=== PATIENT | female | born 1990 | race Caucasian/White ===

== ENCOUNTER 2019-02-20 07:37 | Inpatient (IN) ==
[2019-02-20] MEDS ORDERED: OXYTOCIN 30 UNITS/500 ML BAG IV PRN ×2 (09:16→12:47)
[2019-02-20 09:39] LABS: Hematocrit (blood only) 38.4 % (37-47); Hemoglobin 12.9 g/dL (12.0-16.0); Mean Corpuscular Hemoglobin 30.5 pg (25-34); Mean Corpuscular Volume 90.8 fL (80-100); Mean Platelet Volume 8.7 fL (7.4-10.4); Platelet Count 233 K/uL (130-400); RDW Coefficient of Variation 14.5 % (11.5-14.5); RDW Standard Deviation 47.8 fL (36.4-46.3); Red Blood Count 4.23 M/uL (4.2-5.4); White Blood Count 8.97 K/uL (4.8-10.8)
[2019-02-20 09:42] LABS: Mean Corpuscular Hgb Conc 33.6 g/dL (32-36)
--- NOTE | 2019-02-20 10:10 | Obstetrical Progress Note ---
Date of Service February 20, 2019 Subjective Bird bulb inserted into cervix with 30cc saline pt tolerated procedure well FHR; CAT1 Ctx 4-5mins will do low dose pit with bird pt agrees to plan Results & Data Vital Signs (Past 12 Hours) Vital Signs Temp Pulse Resp BP 02/20/19 07:58 37.1 C 86 20 111/64 02/20/19 07:50 37.1 C 20
--- NOTE | 2019-02-20 10:24 | History and Physical Report ---
DATE OF ADMISSION: 02/20/2019 HISTORY OF PRESENT ILLNESS: The patient is a 29-year-old G2, P1, due date is 02/24/2019 making her 39 weeks and 3 days today, who is here on Labor and Delivery for induction of labor. The patient is a previous section. She was sectioned for preeclampsia. This was 15 months ago. In this , the patient's blood pressure has been under control. She does not have preeclampsia in this . She was started on 81 mg of baby aspirin. She saw Maternal Medicine and during the evaluation, fetus was found to have left renal dilation of pelvis and calyces. Maternal Medicine recommendation is to have the patient induced and delivered by 39 weeks. The patient had been seen in the office and has seen midwives and our providers and had agreed to undergo a trial of labor under section. Here today in Labor and Delivery, I have discussed once again the risks of vaginal after to the patient including risks of uterine rupture, risks to the fetus and mother. Of significant concern is the fact that the patient's last delivery was less than 18 months. I have told the patient that the risks of uterine rupture is increased if the delivery is less than 18 months. She is also not in active labor which means we might have to augment her labor with Pitocin. These 2 things do increase her risk. I discussed all these risks with her. The nurse and I stepped out of the room and the patient had a discussion with her and have agreed to proceed with a trial of labor after despite the risk. We therefore will proceed with the trial of labor. PAST MEDICAL HISTORY: 1. History of preeclampsia. 2. History of allergic rhinitis. PAST SURGICAL HISTORY: section and tonsillectomy. SOCIAL HISTORY: The patient denies tobacco, drug or alcohol use. The patient is and lives with spouse. ALLERGIES: No known drug allergies. PHYSICAL EXAMINATION: GENERAL: Well-developed, well-nourished white female, in no acute distress. HEART: S1, S2, regular rhythm and rate. LUNGS: Clear to auscultation bilaterally. ABDOMEN: Nontender, nondistended. Bedside ultrasound shows cephalic presentation. EXTREMITIES: No cyanosis, clubbing or edema. PELVIC: Shows she is about 2 cm dilated, soft anterior and about 50% effaced. ASSESSMENT AND PLAN: A 29-year-old G2, P1 at 39 weeks and 2 days, 1 prior section, wishes to try vaginal delivery after . Risks have been discussed with the patient. Specific attention have been paid to the fact that: 1. Her last delivery was less than 18 months ago. 2. Because she is not dulce, she may need Pitocin augmentation. The patient has agreed to proceed with the trial of labor. The patient has been induced at 39 weeks per recommendation of Maternal Medicine. Fetus has left urinary tract dilation and recommendation is to induce patient of 39 weeks. Risks of was also discussed with the patient. This was to help her make the decision between section and labor induction. We will therefore proceed with induction of labor. RAZIA
[2019-02-20] MEDS ORDERED: OXYTOCIN 30 UNITS/500 ML BAG IV SCH (11:30)
[2019-02-20] MEDS: LACTATED RINGER'S 1,000 ML IV PRN ×3 (12:47→23:16)
--- NOTE | 2019-02-20 13:05 | Obstetrical Progress Note ---
Date of Service February 20, 2019 Subjective Pt doing well Folet bulb fell out FHR; CAT1 Ctx 4-min VE; 2/50/-3 EFW 8lbs Unable to AROM Will start Pitocin Results & Data Vital Signs (Past 12 Hours) Vital Signs Temp Pulse Resp BP 02/20/19 11:38 36.9 C 83 20 112/63 02/20/19 07:58 37.1 C 86 20 111/64 02/20/19 07:50 37.1 C 20
[2019-02-20] MEDS ORDERED: fentaNYL citrate 100 MCG/2 ML VIAL ONE (16:50)
[2019-02-20] MEDS ORDERED: BUPIVACAINE 0.25% 30 ML VIAL ONE (16:50)
[2019-02-20] MEDS ORDERED: ePHEDrine sulfate 50 MG/ML AMP ONE (16:50)
[2019-02-20] MEDS ORDERED: fentaNYL 2MCG/ML ROPIV 1.25MG/ML 100 ML BAG EPI ONE (16:51)
--- NOTE | 2019-02-20 17:38 | Anesthesiology Consultation ---
Date of Service February 20, 2019 Assessment & Plan Chart Review Chart Review: Patient NOT seen in Pre Admission Testing and Acceptable Risk for Labor Epidural Consults Requested none ASA ASA2 Proposed Anesthesia Anesthesia Type: Labor Epidural Risk / Benefits Reviewed With: PT / POA / Parent / Guardian, Accepts Plan and Informed Consent Obtained History Height/Weight Height: 5 ft 4 in Weight: 100.698 kg Allergies Allergy/AdvReac Type Severity Reaction Status Date / Time No Known Allergies Allergy Unverified 02/28/18 10:30 Medications Home Medications Medication Instructions Recorded Confirmed Last Taken PNV cmb#95-ferrous fumarate-FA 1 tab PO DAILY 02/28/18 02/20/19 02/19/19 07:30 [] cetirizine [Zyrtec] 10 mg PO DAILY 02/28/18 02/20/19 02/19/19 07:30 aspirin [Aspirin Childrens] 81 mg PO DAILY 02/20/19 02/20/19 02/19/19 06:30 docusate sodium [Colace] 100 mg PO TID 02/20/19 02/20/19 02/19/19 18:00 Active Medications Generic Name Dose Route Start Last Admin Trade Name Freq PRN Reason Stop Dose Admin Lactated Ringer's 1,000 mls @ 125 mls/hr 02/20/19 09:16 02/20/19 17:17 Lr IV 02/22/19 09:15 999 mls/hr .Q8H PRN Administration L&D Protocol Protocol Oxytocin 30 units in 500 mls @ 6 mls/hr 02/20/19 12:47 02/20/19 14:52 Pitocin IV 02/22/19 12:46 0.36 units/hr .Q24H PRN 6 mls/hr Labor Induction/Augmentation Titration Protocol 0.36 UNITS/HR NPO Date Last Intake of Fluids: 02/20/19 Time Last Intake of Fluids: 15:00 Date Last Intake of Solids: 02/20/19 Time Last Intake of Solids: 07:00 Past Medical History Medical History delivery delivered delivery delivered Pre-eclampsia, severe Exercise / Class Metabolic Activity II 4-5 Yardwork/Stairs/Walk up hill Past Surgical History Surgical History History of myringotomy History of tonsillectomy History of tooth extraction Past Anesthesia History No Hx of Anesthesia Complications and No Family Hx of Anesthesia Complications History of PONV No Hx of PONV and No Hx of Motion Sickness Social History Smoking Status: Never smoker Do You Dip or Chew Tobacco: No Hx Alcohol Use: No Hx Substance Use: No Physical Exam Vital Signs Last Vital Signs Temp 36.9 C 02/20/19 11:38 Pulse 88 02/20/19 17:37 Resp 20 02/20/19 11:38 BP 109/56 L 02/20/19 17:37 Pulse Ox 99 02/20/19 17:37 ENMT Mouth: no dentition abnormality Thyromental Distance: > or= 3.5 Finger Breadths Mallampati Class: II Neck normal visual inspection Respiratory normal respiratory effort Auscultation: lungs clear to auscultation bilaterally Cardiovascular Rate/Rhythm: regular rate and regular rhythm Psychiatric Orientation: alert Testing Laboratory Results 02/20/19 09:26
[2019-02-20] MEDS ORDERED: ePHEDrine sulfate 50 MG/ML AMP IV PRN (17:40)
[2019-02-20] MEDS ORDERED: NALOXONE HCL 1 MG in SODIUM CHLORIDE 0.9% 1000ML 1,000 ML IV PRN (17:40)
[2019-02-20] MEDS ORDERED: NALOXONE HCL 0.4 MG/1 ML VIAL/CARP IV PRN (17:40)
[2019-02-20] MEDS ORDERED: ONDANSETRON INJ 2 MG/ML 2 ML VIAL IV PRN (17:40)
[2019-02-20] MEDS ORDERED: NALBUPHINE HCL INJ 10 MG/ML AMP IV PRN (17:40)
[2019-02-20] MEDS ORDERED: DiphenhydrAMINE HCL 50 MG/ML VIAL IV PRN (17:40)
--- NOTE | 2019-02-20 18:45 | Obstetrical Progress Note ---
Date of Service February 20, 2019 Subjective pt dong well Pt has epidural analgesia FHR; CAT1 ctx 3-4mins VE; 3-4/50.-2 AROM- clear Pit 6Mu Results & Data Vital Signs (Past 12 Hours) Vital Signs Temp Pulse Resp BP Pulse Ox 02/20/19 18:42 84 97 02/20/19 18:37 80 97 02/20/19 18:32 87 97 02/20/19 18:29 80 114/62 02/20/19 18:27 79 97 02/20/19 18:22 86 97 02/20/19 18:17 91 H 97 02/20/19 18:15 76 115/58 L 02/20/19 18:12 85 97 02/20/19 18:07 90 97 02/20/19 18:02 89 97 02/20/19 17:59 75 111/57 L 02/20/19 17:57 81 97 02/20/19 17:52 88 98 02/20/19 17:47 85 98 02/20/19 17:43 82 109/55 L 02/20/19 17:42 87 96 02/20/19 17:37 88 109/56 L 99 02/20/19 17:35 86 107/58 L 02/20/19 17:33 87 110/57 L 02/20/19 17:32 85 98 02/20/19 17:31 86 110/56 L 02/20/19 17:29 83 110/58 L 02/20/19 17:27 77 116/61 98 02/20/19 17:25 83 125/67 02/20/19 17:22 94 H 99 02/20/19 17:18 78 123/69 02/20/19 17:17 85 99 02/20/19 15:31 82 110/65 02/20/19 14:18 78 116/63 02/20/19 13:09 82 112/69 02/20/19 11:38 36.9 C 83 20 112/63 02/20/19 07:58 37.1 C 86 20 111/64 02/20/19 07:50 37.1 C 20
[2019-02-20] MEDS ORDERED: ACETAMINOPHEN 500 MG TAB PO ONE (21:00)
[2019-02-21] MEDS: fentaNYL 2MCG/ML ROPIV 1.25MG/ML 100 ML BAG EPI PRN ×2 (02:35→09:09)
[2019-02-21] MEDS ORDERED: ACETAMINOPHEN 500 MG TAB PO ONE (05:52)
[2019-02-21] MEDS ORDERED: ACETAMINOPHEN 500 MG TAB ONE (05:55)
--- NOTE | 2019-02-21 06:24 | Obstetrical Progress Note ---
Date of Service February 21, 2019 Subjective Pt doing well FHR; CAT1 Ctx/ 3-5mins VE; 5-6/75/-2 Pit 6Mu Results & Data Vital Signs (Past 12 Hours) Vital Signs Temp Pulse Resp BP Pulse Ox 02/21/19 06:22 94 H 96 02/21/19 06:17 87 97 02/21/19 06:14 86 110/63 02/21/19 06:12 80 95 02/21/19 06:07 82 95 02/21/19 06:03 79 94 02/21/19 06:02 81 95 02/21/19 05:59 86 110/62 02/21/19 05:57 90 97 02/21/19 05:52 83 96 02/21/19 05:47 82 95 02/21/19 05:44 81 106/56 L 02/21/19 05:42 81 95 02/21/19 05:40 80 94 02/21/19 05:37 80 96 02/21/19 05:34 82 94 02/21/19 05:32 82 95 02/21/19 05:30 77 107/58 L 02/21/19 05:29 81 94 02/21/19 05:27 81 95 02/21/19 05:22 81 95 02/21/19 05:21 82 94 02/21/19 05:17 81 95 02/21/19 05:15 79 108/60 02/21/19 05:12 86 96 02/21/19 05:07 95 H 97 02/21/19 05:05 36.8 C 18 02/21/19 05:02 91 H 94 02/21/19 04:59 82 108/59 L 02/21/19 04:57 82 96 02/21/19 04:52 84 96 02/21/19 04:48 80 94 02/21/19 04:47 78 94 02/21/19 04:44 80 108/64 02/21/19 04:43 80 94 02/21/19 04:42 83 95 02/21/19 04:37 83 95 02/21/19 04:34 81 94 02/21/19 04:32 80 95 02/21/19 04:30 78 109/62 02/21/19 04:27 84 94 02/21/19 04:25 79 94 02/21/19 04:22 82 95 02/21/19 04:18 81 94 02/21/19 04:17 78 95 02/21/19 04:14 83 115/61 02/21/19 04:13 78 94 02/21/19 04:12 83 95 02/21/19 04:07 79 94 02/21/19 04:02 80 95 02/21/19 04:01 81 94 02/21/19 03:59 82 107/57 L 02/21/19 03:57 81 94 02/21/19 03:54 79 94 02/21/19 03:52 82 96 02/21/19 03:47 76 95 02/21/19 03:44 84 106/59 L 02/21/19 03:43 91 H 94 02/21/19 03:42 78 95 02/21/19 03:37 79 96 02/21/19 03:32 80 96 02/21/19 03:30 82 107/55 L 02/21/19 03:27 86 98 02/21/19 03:22 77 96 02/21/19 03:17 77 95 02/21/19 03:14 81 110/55 L 02/21/19 03:12 77 96 02/21/19 03:07 77 96 02/21/19 03:02 76 96 02/21/19 02:59 82 99/50 L 02/21/19 02:57 76 96 02/21/19 02:52 81 95 02/21/19 02:47 80 96 02/21/19 02:45 37.0 C 77 97/53 L 02/21/19 02:42 82 96 02/21/19 02:37 81 96 02/21/19 02:32 76 95 02/21/19 02:30 79 98/53 L 02/21/19 02:27 75 96 02/21/19 02:22 75 96 02/21/19 02:17 76 96 02/21/19 02:14 75 98/54 L 02/21/19 02:12 75 96 02/21/19 02:07 75 96 02/21/19 02:02 76 95 02/21/19 01:59 75 96/55 L 02/21/19 01:57 74 96 02/21/19 01:52 88 96 02/21/19 01:47 75 96 02/21/19 01:44 74 93/54 L 02/21/19 01:42 75 96 02/21/19 01:37 72 96 02/21/19 01:32 72 96 02/21/19 01:29 73 93/55 L 02/21/19 01:27 73 96 02/21/19 01:22 74 97 02/21/19 01:17 76 96 02/21/19 01:15 76 99/53 L 02/21/19 01:12 76 96 02/21/19 01:11 36.9 C 18 02/21/19 01:07 74 97 02/21/19 01:02 80 97 02/21/19 00:59 75 110/64 02/21/19 00:57 74 97 02/21/19 00:52 75 96 02/21/19 00:47 73 96 02/21/19 00:45 77 101/60 02/21/19 00:42 76 96 02/21/19 00:37 76 96 02/21/19 00:32 77 96 02/21/19 00:30 74 107/60 02/21/19 00:27 74 96 02/21/19 00:22 76 96 02/21/19 00:19 73 94 02/21/19 00:17 75 96 02/21/19 00:15 76 110/59 L 02/21/19 00:12 77 96 02/21/19 00:07 75 96 02/21/19 00:02 72 96 02/21/19 00:00 72 107/62 02/20/19 23:57 76 96 02/20/19 23:52 75 95 02/20/19 23:47 79 95 02/20/19 23:44 74 109/57 L 02/20/19 23:42 78 96 02/20/19 23:37 78 96 02/20/19 23:32 75 96 02/20/19 23:29 75 109/57 L 02/20/19 23:27 76 96 02/20/19 23:22 79 96 02/20/19 23:17 72 96 02/20/19 23:14 72 106/58 L 02/20/19 23:12 74 96 02/20/19 23:09 36.7 C 18 02/20/19 23:07 77 97 02/20/19 23:05 83 94 01/06/20 23:02 75 95 02/20/19 22:59 75 119/61 02/20/19 22:57 83 94 02/20/19 22:52 74 96 02/20/19 22:50 80 94 02/20/19 22:47 77 96 02/20/19 22:44 77 117/62 94 02/20/19 22:42 75 95 02/20/19 22:37 75 96 02/20/19 22:32 73 96 02/20/19 22:29 75 112/61 02/20/19 22:27 77 96 02/20/19 22:22 75 96 02/20/19 22:19 83 93 02/20/19 22:17 76 96 02/20/19 22:14 77 117/59 L 02/20/19 22:12 75 96 02/20/19 22:07 78 96 02/20/19 22:02 77 95 02/20/19 21:59 78 109/57 L 02/20/19 21:57 77 96 02/20/19 21:52 80 96 02/20/19 21:47 83 97 02/20/19 21:45 80 116/62 02/20/19 21:42 79 98 02/20/19 21:37 78 97 02/20/19 21:32 79 97 02/20/19 21:29 80 113/57 L 02/20/19 21:27 84 98 02/20/19 21:22 80 97 02/20/19 21:17 80 97 02/20/19 21:14 83 118/59 L 02/20/19 21:12 82 97 02/20/19 21:10 37.1 C 18 02/20/19 21:07 95 H 98 02/20/19 21:02 85 97 02/20/19 20:59 81 112/57 L 02/20/19 20:57 83 96 02/20/19 20:52 84 97 02/20/19 20:47 80 97 02/20/19 20:44 80 104/60 02/20/19 20:42 90 97 02/20/19 20:37 83 97 02/20/19 20:32 82 97 02/20/19 20:29 86 112/65 02/20/19 20:27 84 97 02/20/19 20:22 83 96 02/20/19 20:17 82 96 02/20/19 20:14 78 113/62 02/20/19 20:12 80 95 02/20/19 20:07 84 96 02/20/19 20:02 86 97 02/20/19 19:59 81 109/60 02/20/19 19:57 85 95 02/20/19 19:52 88 96 02/20/19 19:47 86 96 02/20/19 19:44 84 106/59 L 02/20/19 19:42 85 95 02/20/19 19:37 79 97 02/20/19 19:36 80 94 02/20/19 19:32 89 96 02/20/19 19:30 81 108/62 02/20/19 19:27 85 97 02/20/19 19:22 83 97 02/20/19 19:17 85 97 02/20/19 19:14 89 106/62 02/20/19 19:12 90 98 02/20/19 19:07 80 97 02/20/19 19:02 85 97 02/20/19 19:00 37.0 C 18 02/20/19 18:59 88 105/61 02/20/19 18:57 81 96 02/20/19 18:52 79 97 02/20/19 18:47 94 H 98 02/20/19 18:45 86 109/65 02/20/19 18:42 84 97 02/20/19 18:37 80 97 02/20/19 18:32 87 97 02/20/19 18:29 80 114/62 02/20/19 18:27 79 97
[2019-02-21] MEDS ORDERED: SODIUM CHLORIDE 0.65% NA SOLN 45 ML (OCEAN) ONE (07:04)
[2019-02-21] MEDS: LACTATED RINGER'S 1,000 ML IV PRN (07:10)
--- NOTE | 2019-02-21 09:43 | Obstetrical Progress Note ---
Date of Service February 21, 2019 Subjective Patient is seen and examined Reviewed her records She is known to me from before IOL since yesterday s/p Santos bulb and low dose Pitocin with AROM Received epidural for pain, comfortable, no pain no pressure No BLACKMAN/ Change in vision/N&V VSS Afebrile FHR categ I [place] ctxs q 3-5 min, Pitocin at 8 mi/min VE; 5-6cm/ 60%/ -3, coned head, no change since this morning Discussed continue with PRETTY vs repeat Caseation She likes try more for VAC Plan to go up with Pitocin until 10 mi/min and reevaluate Continue to monitor closely Results & Data Vital Signs (Past 12 Hours) Vital Signs Temp Pulse Resp BP Pulse Ox 02/21/19 09:37 79 96 02/21/19 09:32 80 97 02/21/19 09:29 81 114/64 02/21/19 09:27 83 97 02/21/19 09:22 87 96 02/21/19 09:17 81 95 02/21/19 09:14 84 108/56 L 02/21/19 09:12 82 96 02/21/19 09:07 80 96 02/21/19 09:02 85 96 02/21/19 08:59 76 103/55 L 02/21/19 08:58 37.1 C 20 02/21/19 08:57 82 97 02/21/19 08:52 79 96 02/21/19 08:47 82 96 02/21/19 08:44 85 111/56 L 02/21/19 08:42 83 95 02/21/19 08:37 84 95 02/21/19 08:32 79 96 02/21/19 08:31 85 94 02/21/19 08:29 83 107/58 L 02/21/19 08:27 75 94 02/21/19 08:23 81 94 02/21/19 08:22 78 94 02/21/19 08:18 80 94 02/21/19 08:17 80 95 02/21/19 08:14 82 107/57 L 02/21/19 08:12 86 94 02/21/19 08:07 81 96 02/21/19 08:06 77 94 02/21/19 08:02 76 95 02/21/19 07:59 74 112/59 L 01/07/20 07:57 78 96 02/21/19 07:52 76 95 02/21/19 07:47 79 96 02/21/19 07:44 77 111/58 L 02/21/19 07:42 78 96 02/21/19 07:37 79 95 02/21/19 07:32 78 96 02/21/19 07:30 76 108/59 L 02/21/19 07:27 80 95 02/21/19 07:22 81 96 02/21/19 07:17 79 95 02/21/19 07:14 79 101/58 L 02/21/19 07:12 78 96 02/21/19 07:07 83 95 02/21/19 07:04 89 94 02/21/19 07:02 86 96 02/21/19 06:59 37.3 C 81 20 112/57 L 02/21/19 06:57 82 95 02/21/19 06:52 87 97 02/21/19 06:47 85 96 02/21/19 06:44 85 116/67 02/21/19 06:42 79 96 02/21/19 06:37 86 96 02/21/19 06:32 83 96 02/21/19 06:29 85 114/66 02/21/19 06:27 83 96 02/21/19 06:22 94 H 96 02/21/19 06:17 87 97 02/21/19 06:14 86 110/63 02/21/19 06:12 80 95 02/21/19 06:07 82 95 02/21/19 06:03 79 94 02/21/19 06:02 81 95 02/21/19 05:59 86 110/62 02/21/19 05:57 90 97 02/21/19 05:52 83 96 02/21/19 05:47 82 95 02/21/19 05:44 81 106/56 L 02/21/19 05:42 81 95 02/21/19 05:40 80 94 02/21/19 05:37 80 96 02/21/19 05:34 82 94 02/21/19 05:32 82 95 02/21/19 05:30 77 107/58 L 02/21/19 05:29 81 94 02/21/19 05:27 81 95 02/21/19 05:22 81 95 02/21/19 05:21 82 94 02/21/19 05:17 81 95 02/21/19 05:15 79 108/60 02/21/19 05:12 86 96 02/21/19 05:07 95 H 97 02/21/19 05:05 36.8 C 18 02/21/19 05:02 91 H 94 02/21/19 04:59 82 108/59 L 02/21/19 04:57 82 96 02/21/19 04:52 84 96 02/21/19 04:48 80 94 02/21/19 04:47 78 94 02/21/19 04:44 80 108/64 02/21/19 04:43 80 94 02/21/19 04:42 83 95 02/21/19 04:37 83 95 02/21/19 04:34 81 94 02/21/19 04:32 80 95 02/21/19 04:30 78 109/62 02/21/19 04:27 84 94 02/21/19 04:25 79 94 02/21/19 04:22 82 95 02/21/19 04:18 81 94 02/21/19 04:17 78 95 02/21/19 04:14 83 115/61 02/21/19 04:13 78 94 02/21/19 04:12 83 95 02/21/19 04:07 79 94 02/21/19 04:02 80 95 02/21/19 04:01 81 94 02/21/19 03:59 82 107/57 L 02/21/19 03:57 81 94 02/21/19 03:54 79 94 02/21/19 03:52 82 96 02/21/19 03:47 76 95 02/21/19 03:44 84 106/59 L 02/21/19 03:43 91 H 94 02/21/19 03:42 78 95 02/21/19 03:37 79 96 02/21/19 03:32 80 96 02/21/19 03:30 82 107/55 L 02/21/19 03:27 86 98 02/21/19 03:22 77 96 02/21/19 03:17 77 95 02/21/19 03:14 81 110/55 L 02/21/19 03:12 77 96 02/21/19 03:07 77 96 02/21/19 03:02 76 96 02/21/19 02:59 82 99/50 L 02/21/19 02:57 76 96 02/21/19 02:52 81 95 02/21/19 02:47 80 96 02/21/19 02:45 37.0 C 77 97/53 L 02/21/19 02:42 82 96 02/21/19 02:37 81 96 02/21/19 02:32 76 95 02/21/19 02:30 79 98/53 L 02/21/19 02:27 75 96 02/21/19 02:22 75 96 02/21/19 02:17 76 96 02/21/19 02:14 75 98/54 L 02/21/19 02:12 75 96 02/21/19 02:07 75 96 02/21/19 02:02 76 95 02/21/19 01:59 75 96/55 L 02/21/19 01:57 74 96 02/21/19 01:52 88 96 02/21/19 01:47 75 96 02/21/19 01:44 74 93/54 L 02/21/19 01:42 75 96 02/21/19 01:37 72 96 02/21/19 01:32 72 96 02/21/19 01:29 73 93/55 L 02/21/19 01:27 73 96 02/21/19 01:22 74 97 02/21/19 01:17 76 96 02/21/19 01:15 76 99/53 L 02/21/19 01:12 76 96 02/21/19 01:11 36.9 C 18 02/21/19 01:07 74 97 02/21/19 01:02 80 97 02/21/19 00:59 75 110/64 02/21/19 00:57 74 97 02/21/19 00:52 75 96 02/21/19 00:47 73 96 02/21/19 00:45 77 101/60 02/21/19 00:42 76 96 02/21/19 00:37 76 96 02/21/19 00:32 77 96 02/21/19 00:30 74 107/60 02/21/19 00:27 74 96 02/21/19 00:22 76 96 02/21/19 00:19 73 94 02/21/19 00:17 75 96 02/21/19 00:15 76 110/59 L 02/21/19 00:12 77 96 02/21/19 00:07 75 96 02/21/19 00:02 72 96 02/21/19 00:00 72 107/62 02/20/19 23:57 76 96 02/20/19 23:52 75 95 02/20/19 23:47 79 95 02/20/19 23:44 74 109/57 L 02/20/19 23:42 78 96 02/20/19 23:37 78 96 02/20/19 23:32 75 96 02/20/19 23:29 75 109/57 L 02/20/19 23:27 76 96 02/20/19 23:22 79 96 02/20/19 23:17 72 96 02/20/19 23:14 72 106/58 L 02/20/19 23:12 74 96 02/20/19 23:09 36.7 C 18 02/20/19 23:07 77 97 02/20/19 23:05 83 94 02/20/19 23:02 75 95 02/20/19 22:59 75 119/61 02/20/19 22:57 83 94 02/20/19 22:52 74 96 02/20/19 22:50 80 94 02/20/19 22:47 77 96 02/20/19 22:44 77 117/62 94 02/20/19 22:42 75 95 02/20/19 22:37 75 96 02/20/19 22:32 73 96 02/20/19 22:29 75 112/61 02/20/19 22:27 77 96 02/20/19 22:22 75 96 02/20/19 22:19 83 93 02/20/19 22:17 76 96 02/20/19 22:14 77 117/59 L 02/20/19 22:12 75 96 02/20/19 22:07 78 96 02/20/19 22:02 77 95 02/20/19 21:59 78 109/57 L 02/20/19 21:57 77 96 02/20/19 21:52 80 96 02/20/19 21:47 83 97 02/20/19 21:45 80 116/62 02/20/19 21:42 79 98
[2019-02-21] MEDS ORDERED: ACETAMINOPHEN 325 MG TAB PO PRN (11:20)
[2019-02-21] MEDS ORDERED: ACETAMINOPHEN 325 MG TAB ONE (11:24)
--- NOTE | 2019-02-21 11:46 | Obstetrical Progress Note ---
Date of Service February 21, 2019 Subjective Patient is reevaluated She has BLACKMAN, just took Tylenol FHR had been having variable decelerations with almost each ctxs, good variability in between VSS Afebrile VE; 5-6 cm/ 70%/ -2, coned head, clear fluid leaking AP: 29 yo , IOL since yesterday, TOLAC, s/p Santos, Pitocin, AROM ed 18 hours ago Short interval, h/o C section 15 months ago No cervical change house attendant 5 hours Categ II strip Remote from delivery Recommended repeat C section Understands it is a major surgery and risks were discussed She understands and likes to think about it with her and decide Results & Data Vital Signs (Past 12 Hours) Vital Signs Temp Pulse Resp BP Pulse Ox 02/21/19 11:37 89 97 02/21/19 11:32 94 H 96 02/21/19 11:29 89 116/58 L 02/21/19 11:27 90 95 02/21/19 11:22 91 H 97 02/21/19 11:17 94 H 96 02/21/19 11:14 93 H 113/63 02/21/19 11:12 88 96 02/21/19 11:09 36.6 C 20 02/21/19 11:07 85 97 02/21/19 11:02 93 H 96 02/21/19 10:59 77 114/60 02/21/19 10:57 91 H 98 02/21/19 10:52 83 97 02/21/19 10:47 85 95 02/21/19 10:44 90 118/66 02/21/19 10:42 88 97 02/21/19 10:37 92 H 95 02/21/19 10:32 82 96 02/21/19 10:30 83 114/62 02/21/19 10:29 85 94 02/21/19 10:27 82 95 02/21/19 10:22 86 96 02/21/19 10:17 80 96 02/21/19 10:14 81 106/53 L 02/21/19 10:12 80 96 02/21/19 10:07 82 96 02/21/19 10:02 80 96 02/21/19 10:00 82 117/57 L 02/21/19 09:57 93 H 96 02/21/19 09:52 77 96 01/07/20 09:47 86 97 02/21/19 09:45 82 108/63 02/21/19 09:42 84 96 02/21/19 09:37 79 96 02/21/19 09:32 80 97 02/21/19 09:29 81 114/64 02/21/19 09:27 83 97 02/21/19 09:22 87 96 02/21/19 09:17 81 95 02/21/19 09:14 84 108/56 L 02/21/19 09:12 82 96 02/21/19 09:07 80 96 02/21/19 09:02 85 96 02/21/19 08:59 76 103/55 L 02/21/19 08:58 37.1 C 20 02/21/19 08:57 82 97 02/21/19 08:52 79 96 02/21/19 08:47 82 96 02/21/19 08:44 85 111/56 L 02/21/19 08:42 83 95 02/21/19 08:37 84 95 02/21/19 08:32 79 96 02/21/19 08:31 85 94 02/21/19 08:29 83 107/58 L 02/21/19 08:27 75 94 02/21/19 08:23 81 94 02/21/19 08:22 78 94 02/21/19 08:18 80 94 02/21/19 08:17 80 95 02/21/19 08:14 82 107/57 L 02/21/19 08:12 86 94 02/21/19 08:07 81 96 02/21/19 08:06 77 94 02/21/19 08:02 76 95 02/21/19 07:59 74 112/59 L 02/21/19 07:57 78 96 02/21/19 07:52 76 95 02/21/19 07:47 79 96 02/21/19 07:44 77 111/58 L 02/21/19 07:42 78 96 02/21/19 07:37 79 95 02/21/19 07:32 78 96 02/21/19 07:30 76 108/59 L 02/21/19 07:27 80 95 02/21/19 07:22 81 96 02/21/19 07:17 79 95 02/21/19 07:14 79 101/58 L 02/21/19 07:12 78 96 02/21/19 07:07 83 95 02/21/19 07:04 89 94 02/21/19 07:02 86 96 02/21/19 06:59 37.3 C 81 20 112/57 L 02/21/19 06:57 82 95 02/21/19 06:52 87 97 02/21/19 06:47 85 96 02/21/19 06:44 85 116/67 02/21/19 06:42 79 96 02/21/19 06:37 86 96 02/21/19 06:32 83 96 02/21/19 06:29 85 114/66 02/21/19 06:27 83 96 02/21/19 06:22 94 H 96 02/21/19 06:17 87 97 02/21/19 06:14 86 110/63 02/21/19 06:12 80 95 02/21/19 06:07 82 95 02/21/19 06:03 79 94 02/21/19 06:02 81 95 02/21/19 05:59 86 110/62 02/21/19 05:57 90 97 02/21/19 05:52 83 96 02/21/19 05:47 82 95 02/21/19 05:44 81 106/56 L 02/21/19 05:42 81 95 02/21/19 05:40 80 94 02/21/19 05:37 80 96 02/21/19 05:34 82 94 02/21/19 05:32 82 95 02/21/19 05:30 77 107/58 L 02/21/19 05:29 81 94 02/21/19 05:27 81 95 02/21/19 05:22 81 95 02/21/19 05:21 82 94 02/21/19 05:17 81 95 02/21/19 05:15 79 108/60 02/21/19 05:12 86 96 02/21/19 05:07 95 H 97 02/21/19 05:05 36.8 C 18 02/21/19 05:02 91 H 94 02/21/19 04:59 82 108/59 L 02/21/19 04:57 82 96 02/21/19 04:52 84 96 02/21/19 04:48 80 94 02/21/19 04:47 78 94 02/21/19 04:44 80 108/64 02/21/19 04:43 80 94 02/21/19 04:42 83 95 02/21/19 04:37 83 95 02/21/19 04:34 81 94 02/21/19 04:32 80 95 02/21/19 04:30 78 109/62 02/21/19 04:27 84 94 02/21/19 04:25 79 94 02/21/19 04:22 82 95 02/21/19 04:18 81 94 02/21/19 04:17 78 95 02/21/19 04:14 83 115/61 02/21/19 04:13 78 94 02/21/19 04:12 83 95 02/21/19 04:07 79 94 02/21/19 04:02 80 95 02/21/19 04:01 81 94 02/21/19 03:59 82 107/57 L 02/21/19 03:57 81 94 02/21/19 03:54 79 94 02/21/19 03:52 82 96 02/21/19 03:47 76 95 02/21/19 03:44 84 106/59 L 02/21/19 03:43 91 H 94 02/21/19 03:42 78 95 02/21/19 03:37 79 96 02/21/19 03:32 80 96 02/21/19 03:30 82 107/55 L 02/21/19 03:27 86 98 02/21/19 03:22 77 96 02/21/19 03:17 77 95 02/21/19 03:14 81 110/55 L 02/21/19 03:12 77 96 02/21/19 03:07 77 96 02/21/19 03:02 76 96 02/21/19 02:59 82 99/50 L 02/21/19 02:57 76 96 02/21/19 02:52 81 95 02/21/19 02:47 80 96 02/21/19 02:45 37.0 C 77 97/53 L 02/21/19 02:42 82 96 02/21/19 02:37 81 96 02/21/19 02:32 76 95 02/21/19 02:30 79 98/53 L 02/21/19 02:27 75 96 02/21/19 02:22 75 96 02/21/19 02:17 76 96 02/21/19 02:14 75 98/54 L 02/21/19 02:12 75 96 02/21/19 02:07 75 96 02/21/19 02:02 76 95 02/21/19 01:59 75 96/55 L 02/21/19 01:57 74 96 02/21/19 01:52 88 96 02/21/19 01:47 75 96 02/21/19 01:44 74 93/54 L 02/21/19 01:42 75 96 02/21/19 01:37 72 96 02/21/19 01:32 72 96 02/21/19 01:29 73 93/55 L 02/21/19 01:27 73 96 02/21/19 01:22 74 97 02/21/19 01:17 76 96 02/21/19 01:15 76 99/53 L 02/21/19 01:12 76 96 02/21/19 01:11 36.9 C 18 02/21/19 01:07 74 97 02/21/19 01:02 80 97 02/21/19 00:59 75 110/64 02/21/19 00:57 74 97 02/21/19 00:52 75 96 02/21/19 00:47 73 96 02/21/19 00:45 77 101/60 02/21/19 00:42 76 96 02/21/19 00:37 76 96 02/21/19 00:32 77 96 02/21/19 00:30 74 107/60 02/21/19 00:27 74 96 02/21/19 00:22 76 96 02/21/19 00:19 73 94 02/21/19 00:17 75 96 02/21/19 00:15 76 110/59 L 02/21/19 00:12 77 96 02/21/19 00:07 75 96 02/21/19 00:02 72 96 02/21/19 00:00 72 107/62 02/20/19 23:57 76 96 02/20/19 23:52 75 95 02/20/19 23:47 79 95 02/20/19 23:44 74 109/57 L
[2019-02-21] MEDS ORDERED: CITRIC ACID/SODIUM CITRATE 15 ML UDC PO SCH (12:00)
[2019-02-21] MEDS ORDERED: LACTATED RINGER'S 1,000 ML IV SCH ×3 (12:00→15:15)
[2019-02-21] MEDS ORDERED: CEFAZOLIN 3000MG 65 ML IV SCH (12:00)
[2019-02-21 12:12] LABS: Basophils # (auto) 0.01 K/uL (0-0.2); Basophils % (auto) 0.1 %; Eosinophils # (auto) 0.02 K/uL (0-0.5); Eosinophils % (auto) 0.2 %; Hematocrit (blood only) 35.5 % (37-47); Hemoglobin 12.2 g/dL (12.0-16.0); Immature Granulocytes # (auto) 0.03 K/uL (0.00-0.02); Immature Granulocytes % (auto) 0.2 %; Lymphocytes # (auto) 1.06 K/uL (1.2-3.4); Lymphocytes % (auto) 8.1 %; Mean Corpuscular Hemoglobin 30.3 pg (25-34); Mean Corpuscular Volume 88.3 fL (80-100); Mean Platelet Volume 8.7 fL (7.4-10.4); Monocytes # (auto) 0.89 K/uL (0.11-0.59); Monocytes % (auto) 6.8 %; Neutrophils # (auto) 11.14 K/uL (1.4-6.5); Neutrophils % (auto) 84.6 %; Platelet Count 196 K/uL (130-400); RDW Coefficient of Variation 14.3 % (11.5-14.5); RDW Standard Deviation 46.5 fL (36.4-46.3); Red Blood Count 4.02 M/uL (4.2-5.4); White Blood Count 13.15 K/uL (4.8-10.8)
[2019-02-21 12:15] LABS: Mean Corpuscular Hgb Conc 34.4 g/dL (32-36)
[2019-02-21] MEDS ORDERED: AZITHROMYCIN 500 MG in DEXTROSE 5% 250 ML IV ONE (12:15)
--- NOTE | 2019-02-21 12:50 | Obstetrical Progress Note ---
Date of Service February 21, 2019 Subjective Patient and her had been thinking and decided to have Repeat Csecton Her went for lunch and she likes to await until he comes back FHR categ I, no more decels since pitocin was off, good variability and accels She signed the informed consent All questions were answered Results & Data Vital Signs (Past 12 Hours) Vital Signs Temp Pulse Resp BP Pulse Ox 02/21/19 12:47 89 96 02/21/19 12:44 92 H 114/56 L 02/21/19 12:42 84 95 02/21/19 12:37 87 96 02/21/19 12:32 83 96 02/21/19 12:30 85 111/56 L 02/21/19 12:27 88 97 02/21/19 12:22 91 H 97 02/21/19 12:17 86 98 02/21/19 12:14 86 118/66 02/21/19 12:12 91 H 98 02/21/19 12:07 88 98 02/21/19 12:02 88 97 02/21/19 11:59 89 115/64 02/21/19 11:57 90 97 02/21/19 11:52 88 96 02/21/19 11:47 86 97 02/21/19 11:44 82 114/62 02/21/19 11:42 88 97 02/21/19 11:37 89 97 02/21/19 11:32 94 H 96 02/21/19 11:29 89 116/58 L 02/21/19 11:27 90 95 02/21/19 11:22 91 H 97 02/21/19 11:17 94 H 96 02/21/19 11:14 93 H 113/63 02/21/19 11:12 88 96 02/21/19 11:09 36.6 C 20 02/21/19 11:07 85 97 02/21/19 11:02 93 H 96 02/21/19 10:59 77 114/60 02/21/19 10:57 91 H 98 02/21/19 10:52 83 97 02/21/19 10:47 85 95 02/21/19 10:44 90 118/66 02/21/19 10:42 88 97 02/21/19 10:37 92 H 95 02/21/19 10:32 82 96 02/21/19 10:30 83 114/62 02/21/19 10:29 85 94 02/21/19 10:27 82 95 02/21/19 10:22 86 96 02/21/19 10:17 80 96 02/21/19 10:14 81 106/53 L 02/21/19 10:12 80 96 02/21/19 10:07 82 96 02/21/19 10:02 80 96 02/21/19 10:00 82 117/57 L 02/21/19 09:57 93 H 96 02/21/19 09:52 77 96 02/21/19 09:47 86 97 02/21/19 09:45 82 108/63 02/21/19 09:42 84 96 02/21/19 09:37 79 96 02/21/19 09:32 80 97 02/21/19 09:29 81 114/64 02/21/19 09:27 83 97 02/21/19 09:22 87 96 02/21/19 09:17 81 95 02/21/19 09:14 84 108/56 L 02/21/19 09:12 82 96 02/21/19 09:07 80 96 02/21/19 09:02 85 96 02/21/19 08:59 76 103/55 L 02/21/19 08:58 37.1 C 20 02/21/19 08:57 82 97 02/21/19 08:52 79 96 02/21/19 08:47 82 96 02/21/19 08:44 85 111/56 L 02/21/19 08:42 83 95 02/21/19 08:37 84 95 02/21/19 08:32 79 96 02/21/19 08:31 85 94 02/21/19 08:29 83 107/58 L 02/21/19 08:27 75 94 02/21/19 08:23 81 94 02/21/19 08:22 78 94 02/21/19 08:18 80 94 02/21/19 08:17 80 95 02/21/19 08:14 82 107/57 L 02/21/19 08:12 86 94 02/21/19 08:07 81 96 02/21/19 08:06 77 94 02/21/19 08:02 76 95 02/21/19 07:59 74 112/59 L 02/21/19 07:57 78 96 02/21/19 07:52 76 95 02/21/19 07:47 79 96 02/21/19 07:44 77 111/58 L 02/21/19 07:42 78 96 02/21/19 07:37 79 95 02/21/19 07:32 78 96 02/21/19 07:30 76 108/59 L 02/21/19 07:27 80 95 02/21/19 07:22 81 96 02/21/19 07:17 79 95 02/21/19 07:14 79 101/58 L 02/21/19 07:12 78 96 02/21/19 07:07 83 95 02/21/19 07:04 89 94 02/21/19 07:02 86 96 02/21/19 06:59 37.3 C 81 20 112/57 L 02/21/19 06:57 82 95 02/21/19 06:52 87 97 02/21/19 06:47 85 96 02/21/19 06:44 85 116/67 02/21/19 06:42 79 96 02/21/19 06:37 86 96 02/21/19 06:32 83 96 02/21/19 06:29 85 114/66 02/21/19 06:27 83 96 02/21/19 06:22 94 H 96 02/21/19 06:17 87 97 02/21/19 06:14 86 110/63 02/21/19 06:12 80 95 02/21/19 06:07 82 95 02/21/19 06:03 79 94 02/21/19 06:02 81 95 02/21/19 05:59 86 110/62 02/21/19 05:57 90 97 02/21/19 05:52 83 96 02/21/19 05:47 82 95 02/21/19 05:44 81 106/56 L 02/21/19 05:42 81 95 02/21/19 05:40 80 94 02/21/19 05:37 80 96 02/21/19 05:34 82 94 02/21/19 05:32 82 95 02/21/19 05:30 77 107/58 L 02/21/19 05:29 81 94 02/21/19 05:27 81 95 02/21/19 05:22 81 95 02/21/19 05:21 82 94 02/21/19 05:17 81 95 02/21/19 05:15 79 108/60 02/21/19 05:12 86 96 02/21/19 05:07 95 H 97 02/21/19 05:05 36.8 C 18 02/21/19 05:02 91 H 94 02/21/19 04:59 82 108/59 L 02/21/19 04:57 82 96 02/21/19 04:52 84 96 02/21/19 04:48 80 94 02/21/19 04:47 78 94 02/21/19 04:44 80 108/64 02/21/19 04:43 80 94 02/21/19 04:42 83 95 02/21/19 04:37 83 95 02/21/19 04:34 81 94 02/21/19 04:32 80 95 02/21/19 04:30 78 109/62 02/21/19 04:27 84 94 02/21/19 04:25 79 94 02/21/19 04:22 82 95 02/21/19 04:18 81 94 02/21/19 04:17 78 95 02/21/19 04:14 83 115/61 02/21/19 04:13 78 94 02/21/19 04:12 83 95 02/21/19 04:07 79 94 02/21/19 04:02 80 95 02/21/19 04:01 81 94 02/21/19 03:59 82 107/57 L 02/21/19 03:57 81 94 02/21/19 03:54 79 94 02/21/19 03:52 82 96 02/21/19 03:47 76 95 02/21/19 03:44 84 106/59 L 02/21/19 03:43 91 H 94 02/21/19 03:42 78 95 02/21/19 03:37 79 96 02/21/19 03:32 80 96 02/21/19 03:30 82 107/55 L 02/21/19 03:27 86 98 02/21/19 03:22 77 96 02/21/19 03:17 77 95 02/21/19 03:14 81 110/55 L 02/21/19 03:12 77 96 02/21/19 03:07 77 96 02/21/19 03:02 76 96 02/21/19 02:59 82 99/50 L 02/21/19 02:57 76 96 02/21/19 02:52 81 95 02/21/19 02:47 80 96 02/21/19 02:45 37.0 C 77 97/53 L 02/21/19 02:42 82 96 02/21/19 02:37 81 96 02/21/19 02:32 76 95 02/21/19 02:30 79 98/53 L 02/21/19 02:27 75 96 02/21/19 02:22 75 96 02/21/19 02:17 76 96 02/21/19 02:14 75 98/54 L 02/21/19 02:12 75 96 02/21/19 02:07 75 96 02/21/19 02:02 76 95 02/21/19 01:59 75 96/55 L 02/21/19 01:57 74 96 02/21/19 01:52 88 96 02/21/19 01:47 75 96 02/21/19 01:44 74 93/54 L 02/21/19 01:42 75 96 02/21/19 01:37 72 96 02/21/19 01:32 72 96 02/21/19 01:29 73 93/55 L 02/21/19 01:27 73 96 02/21/19 01:22 74 97 02/21/19 01:17 76 96 02/21/19 01:15 76 99/53 L 02/21/19 01:12 76 96 02/21/19 01:11 36.9 C 18 02/21/19 01:07 74 97 02/21/19 01:02 80 97 02/21/19 00:59 75 110/64 02/21/19 00:57 74 97 02/21/19 00:52 75 96
--- NOTE | 2019-02-21 13:25 | Obstetrical Progress Note ---
Date of Service February 21, 2019 Subjective Her is back and she is ready Vagina was washed with Betadine, cervix is unchanged FHR category I plan to to OR Results & Data Vital Signs (Past 12 Hours) Vital Signs Temp Pulse Resp BP Pulse Ox 02/21/19 13:22 88 96 02/21/19 13:17 89 96 02/21/19 13:14 86 104/53 L 02/21/19 13:12 93 H 97 02/21/19 13:07 87 97 02/21/19 13:02 84 96 02/21/19 13:01 84 107/55 L 02/21/19 12:57 88 96 02/21/19 12:52 93 H 96 02/21/19 12:47 89 96 02/21/19 12:44 92 H 114/56 L 02/21/19 12:42 84 95 02/21/19 12:37 87 96 02/21/19 12:32 83 96 02/21/19 12:30 85 111/56 L 02/21/19 12:27 88 97 02/21/19 12:22 91 H 97 02/21/19 12:17 86 98 02/21/19 12:14 86 118/66 02/21/19 12:12 91 H 98 02/21/19 12:07 88 98 02/21/19 12:02 88 97 02/21/19 11:59 89 115/64 02/21/19 11:57 90 97 02/21/19 11:52 88 96 02/21/19 11:47 86 97 02/21/19 11:44 82 114/62 02/21/19 11:42 88 97 02/21/19 11:37 89 97 02/21/19 11:32 94 H 96 02/21/19 11:29 89 116/58 L 02/21/19 11:27 90 95 02/21/19 11:22 91 H 97 02/21/19 11:17 94 H 96 02/21/19 11:14 93 H 113/63 02/21/19 11:12 88 96 02/21/19 11:09 36.6 C 20 02/21/19 11:07 85 97 02/21/19 11:02 93 H 96 02/21/19 10:59 77 114/60 02/21/19 10:57 91 H 98 02/21/19 10:52 83 97 02/21/19 10:47 85 95 02/21/19 10:44 90 118/66 02/21/19 10:42 88 97 02/21/19 10:37 92 H 95 02/21/19 10:32 82 96 02/21/19 10:30 83 114/62 02/21/19 10:29 85 94 02/21/19 10:27 82 95 02/21/19 10:22 86 96 02/21/19 10:17 80 96 02/21/19 10:14 81 106/53 L 02/21/19 10:12 80 96 02/21/19 10:07 82 96 02/21/19 10:02 80 96 02/21/19 10:00 82 117/57 L 02/21/19 09:57 93 H 96 02/21/19 09:52 77 96 02/21/19 09:47 86 97 02/21/19 09:45 82 108/63 02/21/19 09:42 84 96 02/21/19 09:37 79 96 02/21/19 09:32 80 97 02/21/19 09:29 81 114/64 02/21/19 09:27 83 97 02/21/19 09:22 87 96 02/21/19 09:17 81 95 02/21/19 09:14 84 108/56 L 02/21/19 09:12 82 96 02/21/19 09:07 80 96 02/21/19 09:02 85 96 02/21/19 08:59 76 103/55 L 02/21/19 08:58 37.1 C 20 02/21/19 08:57 82 97 02/21/19 08:52 79 96 02/21/19 08:47 82 96 02/21/19 08:44 85 111/56 L 02/21/19 08:42 83 95 02/21/19 08:37 84 95 02/21/19 08:32 79 96 02/21/19 08:31 85 94 02/21/19 08:29 83 107/58 L 02/21/19 08:27 75 94 02/21/19 08:23 81 94 02/21/19 08:22 78 94 02/21/19 08:18 80 94 02/21/19 08:17 80 95 02/21/19 08:14 82 107/57 L 02/21/19 08:12 86 94 02/21/19 08:07 81 96 02/21/19 08:06 77 94 02/21/19 08:02 76 95 02/21/19 07:59 74 112/59 L 02/21/19 07:57 78 96 02/21/19 07:52 76 95 02/21/19 07:47 79 96 02/21/19 07:44 77 111/58 L 02/21/19 07:42 78 96 02/21/19 07:37 79 95 02/21/19 07:32 78 96 02/21/19 07:30 76 108/59 L 02/21/19 07:27 80 95 02/21/19 07:22 81 96 02/21/19 07:17 79 95 02/21/19 07:14 79 101/58 L 02/21/19 07:12 78 96 02/21/19 07:07 83 95 02/21/19 07:04 89 94 02/21/19 07:02 86 96 02/21/19 06:59 37.3 C 81 20 112/57 L 02/21/19 06:57 82 95 02/21/19 06:52 87 97 02/21/19 06:47 85 96 02/21/19 06:44 85 116/67 02/21/19 06:42 79 96 02/21/19 06:37 86 96 02/21/19 06:32 83 96 02/21/19 06:29 85 114/66 02/21/19 06:27 83 96 02/21/19 06:22 94 H 96 02/21/19 06:17 87 97 02/21/19 06:14 86 110/63 02/21/19 06:12 80 95 02/21/19 06:07 82 95 02/21/19 06:03 79 94 02/21/19 06:02 81 95 02/21/19 05:59 86 110/62 02/21/19 05:57 90 97 02/21/19 05:52 83 96 02/21/19 05:47 82 95 02/21/19 05:44 81 106/56 L 02/21/19 05:42 81 95 02/21/19 05:40 80 94 02/21/19 05:37 80 96 02/21/19 05:34 82 94 02/21/19 05:32 82 95 02/21/19 05:30 77 107/58 L 02/21/19 05:29 81 94 02/21/19 05:27 81 95 02/21/19 05:22 81 95 02/21/19 05:21 82 94 02/21/19 05:17 81 95 02/21/19 05:15 79 108/60 02/21/19 05:12 86 96 02/21/19 05:07 95 H 97 02/21/19 05:05 36.8 C 18 02/21/19 05:02 91 H 94 02/21/19 04:59 82 108/59 L 02/21/19 04:57 82 96 02/21/19 04:52 84 96 02/21/19 04:48 80 94 02/21/19 04:47 78 94 02/21/19 04:44 80 108/64 02/21/19 04:43 80 94 02/21/19 04:42 83 95 02/21/19 04:37 83 95 02/21/19 04:34 81 94 02/21/19 04:32 80 95 02/21/19 04:30 78 109/62 02/21/19 04:27 84 94 02/21/19 04:25 79 94 02/21/19 04:22 82 95 02/21/19 04:18 81 94 02/21/19 04:17 78 95 02/21/19 04:14 83 115/61 02/21/19 04:13 78 94 02/21/19 04:12 83 95 02/21/19 04:07 79 94 02/21/19 04:02 80 95 02/21/19 04:01 81 94 02/21/19 03:59 82 107/57 L 02/21/19 03:57 81 94 02/21/19 03:54 79 94 02/21/19 03:52 82 96 02/21/19 03:47 76 95 02/21/19 03:44 84 106/59 L 02/21/19 03:43 91 H 94 02/21/19 03:42 78 95 02/21/19 03:37 79 96 02/21/19 03:32 80 96 02/21/19 03:30 82 107/55 L 02/21/19 03:27 86 98 02/21/19 03:22 77 96 02/21/19 03:17 77 95 02/21/19 03:14 81 110/55 L 02/21/19 03:12 77 96 02/21/19 03:07 77 96 02/21/19 03:02 76 96 02/21/19 02:59 82 99/50 L 02/21/19 02:57 76 96 02/21/19 02:52 81 95 02/21/19 02:47 80 96 02/21/19 02:45 37.0 C 77 97/53 L 02/21/19 02:42 82 96 02/21/19 02:37 81 96 02/21/19 02:32 76 95 02/21/19 02:30 79 98/53 L 02/21/19 02:27 75 96 02/21/19 02:22 75 96 02/21/19 02:17 76 96 02/21/19 02:14 75 98/54 L 02/21/19 02:12 75 96 02/21/19 02:07 75 96 02/21/19 02:02 76 95 02/21/19 01:59 75 96/55 L 02/21/19 01:57 74 96 02/21/19 01:52 88 96 02/21/19 01:47 75 96 02/21/19 01:44 74 93/54 L 02/21/19 01:42 75 96 02/21/19 01:37 72 96 02/21/19 01:32 72 96 02/21/19 01:29 73 93/55 L 02/21/19 01:27 73 96
[2019-02-21] MEDS ORDERED: OXYTOCIN 10 UNITS/ML VIAL ONE (14:17)
[2019-02-21] MEDS ORDERED: ONDANSETRON INJ 2 MG/ML 2 ML VIAL ONE (14:17)
[2019-02-21] MEDS ORDERED: MoRPHine SULFATE PF 1 MG/ML 10 ML AMP/VIAL ONE (14:17)
[2019-02-21] MEDS ORDERED: LIDOCAINE/EPINEPHRINE 2% 1:200,000 20 ML SDV ONE (14:17)
[2019-02-21] MEDS ORDERED: PHENYLEPHRINE 100MCG/ML 5ML SYR ONE (14:22)
[2019-02-21] MEDS ORDERED: NALOXONE HCL 0.4 MG/1 ML VIAL/CARP IV PRN (14:25)
[2019-02-21] MEDS ORDERED: LACTATED RINGER'S 500 ML IV PRN (14:25)
[2019-02-21] MEDS ORDERED: NALOXONE HCL 0.08 MG in SYRINGE 1.8 ML IV PRN (14:25)
[2019-02-21] MEDS ORDERED: ONDANSETRON INJ 2 MG/ML 2 ML VIAL IV PRN (14:25)
[2019-02-21] MEDS ORDERED: NALOXONE HCL 1 MG in SODIUM CHLORIDE 0.9% 1000ML 1,000 ML IV PRN (14:25)
[2019-02-21] MEDS ORDERED: MoRPHine SULFATE PF 1 MG/ML 10 ML AMP/VIAL EPI ONE (14:25)
[2019-02-21] MEDS ORDERED: ePHEDrine sulfate 50 MG/ML AMP IV PRN (14:25)
[2019-02-21] MEDS ORDERED: MEPERIDINE HCL 25 MG/ML CARP IV PRN (14:25)
[2019-02-21] MEDS ORDERED: DC INTRASPINAL MORPHINE SCH (14:30)
[2019-02-21] MEDS ORDERED: NO NARCOTICS OR SEDATIVES SCH (14:30)
[2019-02-21] MEDS ORDERED: SODIUM CHLORIDE 0.9% 1000ML 1,000 ML IV SCH (14:30)
[2019-02-21] MEDS ORDERED: OXYTOCIN 10 UNITS/ML VIAL IM ONE (14:47)
[2019-02-21] MEDS ORDERED: MEASLES, MUMPS & RUBELLA VIRUS VIAL SQ ONE (15:04)
[2019-02-21] MEDS ORDERED: DIPHTHERIA/TETANUS/PERTUSSIS 0.5 ML SYR/VIAL IM ONE (15:04)
[2019-02-21] MEDS ORDERED: BENZOCAINE 20% AER SPR 82.5 GM CAN EXT PRN (15:04)
[2019-02-21] MEDS ORDERED: SENNA 8.6 MG TAB PO PRN (15:04)
[2019-02-21] MEDS ORDERED: MAGNESIUM HYDROXIDE SUSP 30 ML UDC PO PRN (15:04)
[2019-02-21] MEDS ORDERED: HYDROCORTISONE ACETATE 25 MG SUPP PR PRN (15:04)
[2019-02-21] MEDS ORDERED: SUPERCREAM 0.870% 15 GM JAR EXT PRN (15:04)
--- NOTE | 2019-02-21 15:10 | Post Operative Brief Note ---
Immediate Post Op Note v1 Date of Surgery February 21, 2019 Pre & Post Diagnosis Operation Date: 02/21/19 13:30 Pre-Op Diagnosis: ARREST OF DILATATION; PREVIOUS SECTION; FAILED TOLAC Post-Op Diagnosis: SAME PREOP I identified the patient and participated in the time-out.: Yes Procedure Operation Date: 02/21/19 13:30 Actual Procedures p Section in LD; Live Male at 1414(Bilateral) - Giovanna Lopez MD Surgeon Giovanna Jama MD Sales Lead Kelsy Hidalgo RN Estimated Blood Loss 600 Findings Consistent with Post-Op Diagnosis Drains Santos Catheter (200 ml) Anesthesia Type Labor Epidural Complications none Disposition Accompanied Patient To Recovery: Yes Disposition: L&D
--- NOTE | 2019-02-21 15:14 | Anesthesia Procedure Note ---
Date of Service February 21, 2019 Anesthesia Post Epidural Note Vital Signs Vital Signs: Temp Pulse Resp BP Pulse Ox 36.6 C 133 H 20 117/55 L 98 02/21/19 11:09 02/21/19 15:11 02/21/19 11:09 02/21/19 15:11 02/21/19 15:10 Pain Intensity Bilateral Abdomen: Pain Intensity: 0 Notes Mental Status: alert / awake / arousable and participated in evaluation Patient Amnestic to Procedure: No Nausea / Vomiting: adequately controlled Pain: adequately controlled Airway Patency, RR, SpO2: stable & adequate BP & HR: stable & adequate Hydration State: stable & adequate Neuraxial Anesthesia: was administered and sensory block is resolving Anesthetic Complications: no major complications apparent and Pt Satisfied with anesthetic care Epidural: Removed without complications and With tip intact
[2019-02-21] MEDS: KETOROLAC 30 MG/ML VIAL IV PRN ×2 (16:01→22:42)
[2019-02-21] MEDS: OXYTOCIN 20 UNITS in LACTATED RINGER'S 1,000 ML IV SCH (16:18)
[2019-02-21] MEDS: DiphenhydrAMINE HCL 50 MG/ML VIAL IV PRN ×2 (17:27→23:21)
[2019-02-21] MEDS: NALBUPHINE HCL INJ 10 MG/ML AMP IV PRN (18:34)
[2019-02-21] MEDS: MoRPHine SULFATE 2 MG/ML CARP IV PRN ×2 (20:04→22:42)
[2019-02-21] MEDS: SIMETHICONE 80 MG CHEW PO SCH (20:51)
[2019-02-21] MEDS: DOCUSATE SODIUM 100 MG CAP PO SCH (20:51)
[2019-02-21] MEDS ORDERED: CEFAZOLIN 3000MG/72.5 ML BAG IV ONE (22:00)
--- NOTE | 2019-02-22 00:20 | Operative Report ---
DATE OF OPERATION: 02/21/2019 PREOPERATIVE DIAGNOSES: The patient is a 29-year-old G2, P1-0-0-1 at 39 weeks and 4 days of gestation, with history of prior , who was admitted yesterday for induction of labor , TOLAC ( Trial of labor after ) Arrest of dilatation at active phase of labor Failed TOLAC Prolonged rupture of membranes Occiput posterior position Suspected macrosomia. POSTOPERATIVE DIAGNOSES: The patient is a 29-year-old G2, P1-0-0-1 at 39 weeks and 4 days of gestation, with history of prior , who was admitted yesterday for induction of labor , TOLAC ( Trial of labor after ) Arrest of dilatation at active phase of labor Failed TOLAC Prolonged rupture of membranes Occiput posterior position Macrosomia.. PROCEDURE: Repeat low transverse with Pfannenstiel skin incision. SURGEON: Giovanna Jama M.D. BACK ROLLER: Kelsy Butts RN ANESTHESIA: Epidural. ANESTHESIOLOGIST: Dr. Gaitan. ESTIMATED BLOOD LOSS: 600 mL. INTRAVENOUS FLUIDS: 1500 mL of lactated ringer. DRAINS: Santos catheter drained 200 mL of clear urine. COMPLICATIONS: None. FINDINGS: Baby was a viable male infant delivered at 14:14 p.m. in cephalic presentation, direct occiput posterior position. Apgars were 7/9, weight was 4480 grams. Maternal findings, normal uterus, fallopian tubes and ovaries. DESCRIPTION OF PROCEDURE: The patient was taken to the operating room where epidural anesthesia was given to be adequate. She was placed in dorsal supine position with a leftward tilt. She was prepared and draped in usual sterile fashion, Pfannenstiel skin incision was made from the old scar, carried through to the underlying layer of fascia with the Bovie. Fascia was incised in the midline and incision was extended laterally with the help of Castano scissors. Upper aspect of the fascial incision was then grasped with 2 Gabriela clamps, elevated, underlying rectus muscles were dissected off sharply with Castano scissors. Lower aspect of the fascial incision was then grasped with 2 Gabriela clamps, elevated, underlying rectus muscles were dissected off sharply with Castano scissors. Rectus muscles were in the midline and incision was extended superiorly and inferiorly with good visualization of the bladder. Bladder blade was inserted. Vesicouterine peritoneum was identified, grasped with pickups and entered sharply with the Metzenbaum scissors. Bladder flap was created digitally and the lower segment was thin and bulging and it was incised in a transverse fashion and incision was extended laterally with the help of bandage scissors. Membranes were ruptured. Clear fluid was obtained. Baby's face was facing up towards the incision and it was occiput posterior position. Baby's head was delivered without difficulty. Shoulders were delivered with minimal traction. Mouth and nose were suctioned. The baby was cleaned, dried and the cord was clamped x2 and cut at 1 minute delay and then baby was handed to waiting pediatric team and cord blood was obtained. Placenta was delivered manually as intact and complete. Uterus was exteriorized, cleared of all clots and debris. Incision was repaired with 0 Vicryl in a running locked fashion and a second imbricating layer was placed with another 0 Vicryl in a running locked fashion. Excellent hemostasis was achieved. Cul-de-sac was irrigated with warm normal saline and suctioned and the fallopian tubes and ovaries were visualized to be normal. Uterus was returned to the abdomen. The pelvis was irrigated with warm normal saline and suctioned. Uterine incision was checked to be hemostatic again. Parietal peritoneum was reapproximated with 3-0 Vicryl in a running fashion and the rectus muscles were reapproximated with the same suture, 3-0 Vicryl in a running fashion. Excellent hemostasis was achieved. Rectus fascia was reapproximated with 0 Vicryl in a running fashion. Subcuticular fat tissue was brought together with 3-0 Vicryl in a running fashion. Skin was closed with 4-0 Monocryl in a subcuticular fashion. No complications happened. The patient tolerated the procedure well. Sponge, lap, needle count was correct x3. I was present during whole procedure. The patient received 3 grams of cefazolin and 500 mg of azithromycin before and during surgery. She was taken to L&D in stable condition. I attest to the content of the Intraoperative Record and any orders documented therein. Any exceptions are noted below. MTDD
[2019-02-22] MEDS: OXYTOCIN 20 UNITS in LACTATED RINGER'S 1,000 ML IV SCH (00:49)
[2019-02-22] MEDS: MoRPHine SULFATE 2 MG/ML CARP IV PRN (03:42)
[2019-02-22] MEDS: NALBUPHINE HCL INJ 10 MG/ML AMP IV PRN (03:51)
[2019-02-22 05:58] LABS: Basophils # (auto) 0.01 K/uL (0-0.2); Basophils % (auto) 0.1 %; Eosinophils # (auto) 0.06 K/uL (0-0.5); Eosinophils % (auto) 0.5 %; Hematocrit (blood only) 29.9 % (37-47); Hemoglobin 10.2 g/dL (12.0-16.0); Immature Granulocytes # (auto) 0.04 K/uL (0.00-0.02); Immature Granulocytes % (auto) 0.3 %; Lymphocytes # (auto) 1.41 K/uL (1.2-3.4); Lymphocytes % (auto) 10.7 %; Mean Corpuscular Hemoglobin 30.8 pg (25-34); Mean Corpuscular Hgb Conc 34.1 g/dL (32-36); Mean Corpuscular Volume 90.3 fL (80-100); Mean Platelet Volume 8.7 fL (7.4-10.4); Monocytes # (auto) 1.01 K/uL (0.11-0.59); Monocytes % (auto) 7.6 %; Neutrophils # (auto) 10.69 K/uL (1.4-6.5); Neutrophils % (auto) 80.8 %; Platelet Count 175 K/uL (130-400); RDW Coefficient of Variation 14.3 % (11.5-14.5); RDW Standard Deviation 47.4 fL (36.4-46.3); Red Blood Count 3.31 M/uL (4.2-5.4); White Blood Count 13.22 K/uL (4.8-10.8)
[2019-02-22] MEDS: KETOROLAC 30 MG/ML VIAL IV PRN (06:44)
[2019-02-22] MEDS ORDERED: MEPERIDINE HCL 50 MG/ML CARP IV PRN (08:25)
[2019-02-22] MEDS ORDERED: DiphenhydrAMINE HCL 50 MG/ML VIAL IV PRN (08:25)
[2019-02-22] MEDS ORDERED: KETOROLAC 30 MG/ML VIAL IV PRN (08:25)
[2019-02-22] MEDS ORDERED: ONDANSETRON INJ 2 MG/ML 2 ML VIAL IV PRN (08:25)
[2019-02-22] MEDS ORDERED: PROMETHAZINE HCL 25 MG in SODIUM CHLORIDE 0.9% 50 ML IV PRN (08:25)
--- NOTE | 2019-02-22 08:43 | Communication Note ---
Date of Service: February 22, 2019 no c/o H/A. no neurologic sequelae.
[2019-02-22] MEDS: FERROUS SULFATE 325 MG TAB PO SCH (09:06)
[2019-02-22] MEDS: DOCUSATE SODIUM 100 MG CAP PO SCH ×2 (09:06→22:13)
[2019-02-22] MEDS: PRENATAL VITAMIN 1 TAB PO SCH (09:07)
[2019-02-22] MEDS: OXYCODONE/ACETAMINOPHEN 5mg/325mg TAB PO PRN ×4 (09:07→22:13)
[2019-02-22] MEDS: SIMETHICONE 80 MG CHEW PO SCH ×4 (09:07→22:13)
--- NOTE | 2019-02-22 11:56 | Surgery Progress Note ---
Date of Service February 22, 2019 Subjective POD#1 doing well passing gas Physical Exam Constitutional: WD/WN, vitals as above comfortable abdomen soft and non- tender fundus firm no edema neg Rylan's will advance diet/activity Results & Data Vital Signs (Past 12 Hours) Vital Signs Temp Pulse Resp BP Pulse Ox 02/22/19 08:30 16 97 02/22/19 07:30 16 96 02/22/19 07:10 36.9 C 81 16 103/69 95 02/22/19 06:30 16 96 02/22/19 05:00 16 94 02/22/19 04:00 36.6 C 81 16 109/62 95 02/22/19 03:30 18 95 02/22/19 02:30 18 96 02/22/19 01:30 16 95 02/22/19 00:30 16 94 Laboratory Results Laboratory Results - last 48 hr 02/20/19 02/21/19 02/22/19 09:26 11:59 05:43 WBC 13.15 H 13.22 H RBC 4.02 L 3.31 L Hgb 12.2 10.2 L Hct 35.5 L 29.9 L MCV 88.3 90.3 MCH 30.3 30.8 MCHC 34.4 34.1 RDW Std Deviation 46.5 H 47.4 H RDW Coeff of Vinicio 14.3 14.3 Plt Count 196 175 MPV 8.7 8.7 Immature Gran % (Auto) 0.2 0.3 Neut % (Auto) 84.6 80.8 Lymph % (Auto) 8.1 10.7 [place] % (Auto) 6.8 7.6 Eos % (Auto) 0.2 0.5 Baso % (Auto) 0.1 0.1 Immature Gran # (Auto) 0.03 H 0.04 H Neut # (Auto) 11.14 H 10.69 H Lymph # (Auto) 1.06 L 1.41 [place] # (Auto) 0.89 H 1.01 H Eos # (Auto) 0.02 0.06 Baso # (Auto) 0.01 0.01 Blood Type AB Positive Antibody Screen NEGATIVE
[2019-02-22] MEDS: IBUPROFEN 600 MG TAB PO PRN ×3 (13:11→22:13)
[2019-02-22] MEDS ORDERED: bisacodyL 5 MG TABEC PO SCH (20:00)
[2019-02-22] MEDS ORDERED: ONDANSETRON 4 MG TAB PO PRN (21:59)
[2019-02-23] MEDS: OXYCODONE/ACETAMINOPHEN 5mg/325mg TAB PO PRN ×5 (03:00→21:22)
[2019-02-23] MEDS: IBUPROFEN 600 MG TAB PO PRN ×5 (03:00→21:21)
[2019-02-23 06:21] LABS: Hematocrit (blood only) 30.1 % (37-47); Hemoglobin 10.1 g/dL (12.0-16.0)
[2019-02-23] MEDS: DOCUSATE SODIUM 100 MG CAP PO SCH ×2 (08:02→21:21)
[2019-02-23] MEDS: SIMETHICONE 80 MG CHEW PO SCH ×4 (08:02→21:21)
[2019-02-23] MEDS: PRENATAL VITAMIN 1 TAB PO SCH (08:02)
[2019-02-23] MEDS: FERROUS SULFATE 325 MG TAB PO SCH (08:02)
--- NOTE | 2019-02-23 09:36 | Obstetrical Progress Note ---
Date of Service February 23, 2019 Assessment & Plan (1) delivery delivered: c/sec day 3# pt doing well continue day2 care ] Subjective Ambulation: ambulating normally Voiding: no voiding problems Passing Gas:: Yes Diet Tolerance:: clear liquids Lochia:: Small Feeding Type:: breast feeding Review of Systems All systems reviewed & are unremarkable except as noted in HPI & below Physical Exam Constitutional WD/WN, vitals as above well developed and well nourished Eyes PERRL, conjunctivae normal, anicteric sclerae ENMT external ear and nose normal, oropharynx normal Neck trachea midline, no thyromegaly Respiratory normal respiratory effort, lungs clear to auscultation Cardiovascular RRR, no murmur, no edema Chest (Breasts) normal inspection/palpation of breasts Gastrointestinal (Abdomen) normal bowel sounds, soft, nontender, no hepatosplenomegaly Musculoskeletal no cyanosis or clubbing, extremities motor strength 5/5 Skin no rashes, warm and dry + incision (Clean,dry and intact) Neurologic patellar DTR's 2+ bilat, sensation intact Psychiatric A+Ox3, euthymic affect Genitourinary normal external appearance Lymphatic no cervical or axillary lymphadenopathy Results & Data Vital Signs (Past 12 Hours) Vital Signs Temp Pulse Resp BP Pulse Ox 02/22/19 23:20 36.5 C 79 18 116/72 96
[2019-02-23] MEDS ORDERED: bisacodyL 10 MG SUPP PR PRN (15:04)
[2019-02-24] MEDS: IBUPROFEN 600 MG TAB PO PRN ×3 (01:25→10:15)
[2019-02-24] MEDS: OXYCODONE/ACETAMINOPHEN 5mg/325mg TAB PO PRN ×3 (01:26→10:15)
[2019-02-24] MEDS: PRENATAL VITAMIN 1 TAB PO SCH (08:28)
[2019-02-24] MEDS: DOCUSATE SODIUM 100 MG CAP PO SCH (08:28)
[2019-02-24] MEDS: FERROUS SULFATE 325 MG TAB PO SCH (08:28)
[2019-02-24] MEDS: SIMETHICONE 80 MG CHEW PO SCH (08:29)
--- NOTE | 2019-02-24 10:26 | Surgery Progress Note ---
Date of Service February 24, 2019 Subjective doing well passing gas had BM tolerating diet Physical Exam Constitutional: WD/WN, vitals as above comfortable incision clean dry and intact no edema neg Rylan's for discharge home Results & Data Vital Signs (Past 12 Hours) Vital Signs Temp Pulse Resp BP Pulse Ox 02/24/19 00:25 36.4 C L 72 18 112/76 99 Laboratory Results Laboratory Results - last 72 hr 02/20/19 02/21/19 02/22/19 09:26 11:59 05:43 WBC 13.15 H 13.22 H RBC 4.02 L 3.31 L Hgb 12.2 10.2 L Hct 35.5 L 29.9 L MCV 88.3 90.3 MCH 30.3 30.8 MCHC 34.4 34.1 RDW Std Deviation 46.5 H 47.4 H RDW Coeff of Vinicio 14.3 14.3 Plt Count 196 175 MPV 8.7 8.7 Immature Gran % (Auto) 0.2 0.3 Neut % (Auto) 84.6 80.8 Lymph % (Auto) 8.1 10.7 [place] % (Auto) 6.8 7.6 Eos % (Auto) 0.2 0.5 Baso % (Auto) 0.1 0.1 Immature Gran # (Auto) 0.03 H 0.04 H Neut # (Auto) 11.14 H 10.69 H Lymph # (Auto) 1.06 L 1.41 Dunn # (Auto) 0.89 H 1.01 H Eos # (Auto) 0.02 0.06 Baso # (Auto) 0.01 0.01 Blood Type AB Positive Antibody Screen NEGATIVE 02/23/19 05:52 WBC RBC Hgb 10.1 L Hct 30.1 L MCV MCH MCHC RDW Std Deviation RDW Coeff of Vinicio Plt Count MPV Immature Gran % (Auto) Neut % (Auto) Lymph % (Auto) [place] % (Auto) Eos % (Auto) Baso % (Auto) Immature Gran # (Auto) Neut # (Auto) Lymph # (Auto) [place] # (Auto) Eos # (Auto) Baso # (Auto) Blood Type Antibody Screen
--- NOTE | 2019-02-26 00:04 | Discharge Summary ---
DETAILS OF ADMISSION: The patient is a 29-year-old G2, P1-0-0-1 at 39 weeks and 3 days of gestation. She was scheduled for induction of labor at term. She has a history of prior . She desired trial of labor after TOLAC/. She has a history of preeclampsia with prior . She has been on aspirin and this was also complicated by left renal dilatation of the pelvis and calices. Maternal medicine recommended induction of labor at 39 weeks. She was admitted by Dr. Rayo. Her cervix was 2 cm dilated, 50%, -3. She received Santos bulb for induction of labor and then she was started on low dose Pitocin on 02/20/2019. She was then ruptured by Dr. Rayo in the evening of 02/20/2019. In the morning of 02/21/2019, I took over, her cervix was 5-6 cm, 70%, -2. She was on 8 units of Pitocin. She then was rechecked three more times with no progress in labor. Her cervix was unchanged and the head was at -3 station and it was suspicious for macrosomia. Baby started to have recurrent variable decelerations with every contraction. Discussed with the patient that she was remote from delivery, category 2 strip and a history of prior , no change in cervix. Recommended . She tolerated for a while and she decided and she signed informed consent. She was taken to the operating room. She had repeat low transverse with Pfannenstiel skin incision by myself. Her surgery was uncomplicated. She delivered a viable male infant at 1430 p.m. and baby was 4480 grams and direct occiput posterior position. Her surgery was uncomplicated and postop period was uncomplicated. Her vital signs were stable, afebrile. Physical exam was unremarkable. Incision was clean, dry and intact. Abdomen was soft. Extremities nontender, no edema. Her H and H in the morning of postop day #1 was 10.2/29.2. Her urine output was good. Santos catheter was discontinued and she was ambulated. She was advanced to regular diet. On postop day #2, the patient was doing well. Vital signs stable, afebrile. She was and on postop day #3, on 02/24/2019, the patient was doing well. Vital signs stable, afebrile, passing gas and had a bowel movement. She was tolerating regular diet. Physical exam was normal and unremarkable. Her repeat H and H was 10.2/29.9. She desired to be discharged home. Discharge instructions were given. Prescriptions were written for pain. She is to be seen in office in a week. All questions were answered.
== END 2019-02-24 12:15 | disposition home or self-care (01) | DRG 788 ==
LOC: 4S1 07:37 → 4S2 02-21 17:30